=== PATIENT | female | born 1935 | race Asian ===

== ENCOUNTER 2021-08-19 14:57 | Inpatient (IN) | payer MEDICARE, OTHER ==
[~2021-08-19] VITALS: Ht 152.4 cm; Wt 48.3 kg
[2021-08-19 16:07] LABS: BASOPHILS % (AUTO) 0.3 % (0.0-2.0); EOSINOPHILS % (AUTO) 0.3 % (1.0-6.0); HEMATOCRIT 32.4 % (36-46); HEMOGLOBIN 10.9 g/dL (12.0-16.0); LYMPHOCYTES # (AUTO) 0.9 K/uL (1.0-4.8); LYMPHOCYTES % (AUTO) 12.8 % (22.0-44.0); MEAN CORPUSCULAR HEMOGLOBIN 37.8 pg (26.0-34.0); MEAN CORPUSCULAR HGB CONC 33.6 G/dL (31.0-37.0); MEAN CORPUSCULAR VOLUME 112 fL (80-100); MONOCYTES # (AUTO) 0.4 K/uL (0.1-1.0); MONOCYTES % (AUTO) 6.2 % (2.0-9.0); NEUTROPHILS # (AUTO) 5.4 K/uL (1.8-7.7); NEUTROPHILS % (AUTO) 80.4 % (40.0-70.0); RED BLOOD CELL COUNT(AUTO) 2.89 MIL/uL (4.00-5.20); RED CELL DISTRIBUTION WIDTH 15.3 % (11.5-14.5)
[2021-08-19 16:17] LABS: ANION GAP 9 mmol/L (8-16); CALCIUM, TOTAL 8.7 mg/dL (8.8-10.5); CARBON DIOXIDE 27 mmol/L (22-29); CHLORIDE 105 mmol/L (98-107); GLUCOSE,RANDOM 152 mg/dL (70-110); POTASSIUM 4.3 mmol/L (3.5-5.1); SODIUM SERUM 141 mmol/L (136-145); UREA NITROGEN, BLOOD 12 mg/dL (7-18)
[2021-08-19 16:22] LABS: ALANINE AMINOTRANSFERASE 19 U/L (12-78); ALBUMIN 3.2 g/dL (3.4-5.0); ALKALINE PHOSPHATASE 66 U/L (46-116); ASPARTATE AMINOTRANSFERASE 27 U/L (15-37); BILIRUBIN,TOTAL 0.3 mg/dL (0.1-1.0)
[2021-08-19 16:23] LABS: GLOMERULAR FILTR. RATE CALC > 60 mL/min (>60)
[2021-08-19 17:25] LABS: PLATELET COUNT (AUTO) 77 K/uL (150-450)
[2021-08-19] MEDS ORDERED: ONDANSETRON HCL 4 MG/2 ML VIAL IVP PRN (19:15)
[2021-08-19] MEDS ORDERED: ACETAMINOPHEN 325 MG TABLET PO PRN (19:15)
[2021-08-19 19:28] LABS: RETICULOCYTE % (AUTO) 1.3 % (0.5-2.3)
[2021-08-19 19:39] LABS: APPEARANCE,URINE CLEAR (CLEAR); BILIRUBIN,URINE NEGATIVE (NEGATIVE); GLUCOSE, URINE (UA) NEGATIVE (NEGATIVE); KETONES,URINE NEGATIVE (NEGATIVE); LEUKOCYTE ESTERASE ,URINE NEGATIVE (NEGATIVE); NITRATE,URINE NEGATIVE (NEGATIVE); OCCULT BLOOD,URINE NEGATIVE (NEGATIVE); PH,URINE 6.5 (5.0-8.0); PROTEIN,URINE NEGATIVE (NEGATIVE); UROBILINOGEN,URINE 0.2 mg/dL (<=1.0)
[2021-08-19 19:40] LABS: % IRON SATURATION 41.8 % (22-44)
[2021-08-19] MEDS ORDERED: [UNRECOGNIZED DRUG - REMARK] AU (20:20)
[2021-08-19] MEDS ORDERED: [UNRECOGNIZED DRUG - REMARK] DIALYSATE (20:20)
[2021-08-19 20:23] LABS: BACTERIA,URINE None Seen /HPF (None Seen); RBC,URINE None Seen /HPF (0-2); WBC,URINE None Seen /HPF (0-5)
[2021-08-19] MEDS: HEPARIN SODIUM,PORCINE 5,000 UNITS/ML VIAL SQ SCH (23:18)
[2021-08-20 00:36] LABS: COVID AG,FIA SOURCE NASOPHARYNGEAL
[2021-08-20] MEDS ORDERED: SODIUM CHLORIDE 0.9% 100 ML ONE (02:21)
[2021-08-20] MEDS ORDERED: IOHEXOL 350 MG/ML 100 ML VIAL ONE (02:21)
[2021-08-20] MEDS: HEPARIN SODIUM,PORCINE 5,000 UNITS/ML VIAL SQ SCH (08:24)
[2021-08-20] MEDS ORDERED: ATOR40TA71 PO (12:34)
[2021-08-20] MEDS ORDERED: LISI20TA24 PO (12:34)
[2021-08-20 15:57] VITALS: BP 144/71
[2021-08-20 19:38] VITALS: BP 135/73
[2021-08-21 00:24] VITALS: BP 126/59
[2021-08-21 03:35] VITALS: BP 153/76
[2021-08-21 08:01] VITALS: BP 104/54
[2021-08-21 11:11] VITALS: BP 149/91
[2021-08-21 15:53] VITALS: BP 148/76
== END 2021-08-21 16:30 | disposition home or self-care (01) | DRG 312 ==
LOC: EMS 14:57 → 5S 08-20 11:56
PROVIDERS: ADMIT Internal Medicine; ATTEND Internal Medicine
DX: R55 Syncope and collapse (principal); D69.6 Thrombocytopenia, unspecified; E04.1 Nontoxic single thyroid nodule; D53.9 Nutritional anemia, unspecified; Z20.822 Contact with and (suspected) exposure to COVID-19
CPT/HCPCS: 71275; 76536; 80053; 81001; 83540; 83550; 84443; 84484; 85025; 85045; 85379; 93005; 93306; 99285; G0378; J1644; J7050; Q9967